=== PATIENT | female | born 1935 | race Caucasian/White ===

== ENCOUNTER 2022-05-11 11:26 | Observation (INO) | payer MEDICARE ==
[~2022-05-11] VITALS: Ht 162.6 cm; Wt 63.5 kg
[2022-05-11 11:59] LABS: HEMOGLOBIN 13.8 gm/dl (12.3-15.3); RED BLOOD COUNT 4.9 M/UL (4.00-5.10); WHITE BLOOD COUNT 4.7 K/UL (4.5-11.0)
[2022-05-11 12:24] LABS: BUN/CREATININE RATIO 13 (0-10)
[2022-05-11] MEDS ORDERED: LEVOTHYROXINE75 MCG PO (14:56)
[2022-05-11] MEDS ORDERED: SPIRONOLACTONE25 MG PO (14:56)
[2022-05-11] MEDS ORDERED: HYDROXYZINE HCL25 MG PO (15:00)
[2022-05-11] MEDS ORDERED: ATENOLOL50 MG PO (15:01)
[2022-05-11] MEDS ORDERED: DOXEPIN HCL25 MG PO (15:01)
[2022-05-11] MEDS ORDERED: LISINOPRIL20 MG PO (15:02)
[2022-05-11] MEDS ORDERED: PROAIR HFA8.5 GM INH (15:02)
[2022-05-11] MEDS ORDERED: DONEPEZIL HCL5 MG PO (15:03)
[2022-05-11] MEDS ORDERED: SIMVASTATIN20 MG PO (15:03)
[2022-05-12 06:23] LABS: HEMOGLOBIN 12.7 gm/dl (12.3-15.3)
[2022-05-12 06:27] LABS: RED BLOOD COUNT 4.36 M/UL (4.00-5.10); WHITE BLOOD COUNT 3.3 K/UL (4.5-11.0)
[2022-05-14 08:44] LABS: HEMOGLOBIN 11.5 gm/dl (12.3-15.3)
[2022-05-14 08:49] LABS: RED BLOOD COUNT 3.91 M/UL (4.00-5.10)
[2022-05-14] MEDS ORDERED: DOXYCYCLINE MO100 MG PO (12:32)
[2022-05-14] MEDS ORDERED: DEXAMETHASONE 44 MG PO (12:32)
--- NOTE | 2022-05-14 14:05 | NUR ---
PATIENT 02 AT 88% ON ROOM AIR, PATIENT PUT BACK ON 4L OF O2 PER [facility] SAT CAME BACK UP TO 91%
[2022-05-14] MEDS ORDERED: PROTONIX 40 MG40 M1 PO (14:36)
[2022-05-14] MEDS ORDERED: PLAVIX75 MG PO (14:36)
[2022-05-14] MEDS ORDERED: ASPIRIN81 MG PO (14:47)
--- NOTE | 2022-05-14 18:24 | NUR ---
CALLED AND GAVE REPORT TO [facility]. PER [facility] THEY WILL CALL THEM TOMORROW AND EXCEPT THE REFERRAL.
== END 2022-05-14 17:55 | disposition home or self-care (01) ==
LOC: ER1 11:26 → CDU 14:33 → MED SURG 4 14:33
PROVIDERS: Nurse Practitioner; ADMIT Internal Medicine
DX: G93.41 Metabolic encephalopathy (principal); E86.0 Dehydration; N17.9 Acute kidney failure, unspecified; I13.10 Hypertensive heart and chronic kidney disease without heart failure, with stage 1 through stage 4 chronic kidney disease, or unspecified chronic kidney disease; N18.9 Chronic kidney disease, unspecified; I67.1 Cerebral aneurysm, nonruptured; U07.1 COVID-19; J12.82 Pneumonia due to coronavirus disease 2019; J96.01 Acute respiratory failure with hypoxia; G30.9 Alzheimer's disease, unspecified; F02.80 Dementia in other diseases classified elsewhere, unspecified severity, without behavioral disturbance, psychotic disturbance, mood disturbance, and anxiety; E03.9 Hypothyroidism, unspecified; E78.5 Hyperlipidemia, unspecified; I25.2 Old myocardial infarction; J45.909 Unspecified asthma, uncomplicated; H26.9 Unspecified cataract; Z86.73 Personal history of transient ischemic attack (TIA), and cerebral infarction without residual deficits; Z28.310 Unvaccinated for COVID-19; Z79.890 Hormone replacement therapy; Z79.899 Other long term (current) drug therapy; Z66 Do not resuscitate; Z91.041 Radiographic dye allergy status; Z88.6 Allergy status to analgesic agent; Z88.8 Allergy status to other drugs, medicaments and biological substances
CPT/HCPCS: ECHO; 0240U; 36415; 36600; 51701; 70450; 70544; 70551; 71045; 80048; 80053; 80061; 81001; 82550; 82553; 82607; 82803; 83036; 83605; 83615; 83735; 84439; 84443; 84484; 85025; 85379; 85610; 85730; 87040; 87086; 92610; 93005; 93306; 94760; 96372; 97162; 97166; 99285; G0378; J1644; J3420; J3486

== ENCOUNTER 2022-05-23 23:21 | Inpatient (IN) | payer MEDICARE ==
[~2022-05-23] VITALS: Ht 162.6 cm; Wt 61.2 kg
[~2022-05-23 23:21] MED LIST: ASPIRIN81 MG PO; ATENOLOL50 MG PO; DEXAMETHASONE 44 MG PO; DONEPEZIL HCL5 MG PO; DOXEPIN HCL25 MG PO; DOXYCYCLINE MO100 MG PO; HYDROXYZINE HCL25 MG PO; LISINOPRIL20 MG PO; PLAVIX75 MG PO; PROAIR HFA8.5 GM INH; PROTONIX 40 MG40 M1 PO; SIMVASTATIN20 MG PO; SPIRONOLACTONE25 MG PO; SYNTHROID75 MCG PO
[2022-05-24 00:22] LABS: HEMOGLOBIN 12.8 gm/dl (12.3-15.3); RED BLOOD COUNT 4.42 M/UL (4.00-5.10); WHITE BLOOD COUNT 15.4 K/UL (4.5-11.0)
[2022-05-24 00:48] LABS: BUN/CREATININE RATIO 22 (0-10)
[2022-05-25 06:00] LABS: HEMOGLOBIN 11.3 gm/dl (12.3-15.3)
[2022-05-25 06:10] LABS: RED BLOOD COUNT 3.9 M/UL (4.00-5.10); WHITE BLOOD COUNT 23.8 K/UL (4.5-11.0)
[2022-05-26 04:26] LABS: HEMOGLOBIN 10.1 gm/dl (12.3-15.3)
[2022-05-26 04:28] LABS: RED BLOOD COUNT 3.49 M/UL (4.00-5.10); WHITE BLOOD COUNT 14.7 K/UL (4.5-11.0)
[2022-05-28] MEDS ORDERED: ATIVAN0.5 MG PO ×2 (11:21→11:23)
[2022-05-28] MEDS ORDERED: MEROPENEM1 GM IM (11:21)
[2022-05-28] MEDS ORDERED: MEROPENEM1 GM IV (11:21)
== END 2022-05-28 19:25 | disposition home health service (06) | DRG 871 ==
LOC: ER1 23:21 → MED SURG 4 05-24 05:09 → CDU 05-24 05:09 → MED SURG 4 05-24 16:12
PROVIDERS: Internal Medicine; Internal Medicine Nephrology; Physician Assistant; ADMIT Internal Medicine
DX: A41.89 Other specified sepsis (principal); Z20.822 Contact with and (suspected) exposure to COVID-19; E43 Unspecified severe protein-calorie malnutrition; G93.41 Metabolic encephalopathy; N30.00 Acute cystitis without hematuria; N17.9 Acute kidney failure, unspecified; E87.0 Hyperosmolality and hypernatremia; G30.9 Alzheimer's disease, unspecified; F02.80 Dementia in other diseases classified elsewhere, unspecified severity, without behavioral disturbance, psychotic disturbance, mood disturbance, and anxiety; E55.9 Vitamin D deficiency, unspecified; R62.7 Adult failure to thrive; N18.30 Chronic kidney disease, stage 3 unspecified; R65.20 Severe sepsis without septic shock; E03.9 Hypothyroidism, unspecified; G93.89 Other specified disorders of brain; E83.42 Hypomagnesemia; I12.9 Hypertensive chronic kidney disease with stage 1 through stage 4 chronic kidney disease, or unspecified chronic kidney disease; E86.0 Dehydration; D63.1 Anemia in chronic kidney disease; R63.0 Anorexia; B96.4 Proteus (mirabilis) (morganii) as the cause of diseases classified elsewhere; Z79.01 Long term (current) use of anticoagulants; Z79.82 Long term (current) use of aspirin; Z90.49 Acquired absence of other specified parts of digestive tract; Z90.710 Acquired absence of both cervix and uterus; Z68.24 Body mass index [BMI] 24.0-24.9, adult
CPT/HCPCS: 51702; 70450; 71045; 80053; 81001; 82140; 82550; 82553; 82746; 83735; 83880; 84100; 84133; 84300; 84439; 84443; 84484; 85025; 85027; 86140; 87040; 87077; 87086; 87186; 92610; 93005; 94760; 96361; 96372; 96374; 97161; 97530; 97530-GP-CQ; 99285; J0696; J1335; J1650; J2185; J3475; J3486